=== PATIENT | female | born 1975 | race Caucasian/White ===

== ENCOUNTER 2019-04-25 10:15 | Emergency (ER) | payer BC, OTHER ==
[~2019-04-25] VITALS: Ht 160 cm; Wt 62.2 kg
[2019-04-25] MEDS ORDERED: NS IV 1000 ML 1,000 ML IV SCH (10:45)
[2019-04-25] MEDS ORDERED: diphenhydrAMINE 50 MG/ML INJ (BENADRYL) IVP ONE (10:45)
[2019-04-25] MEDS ORDERED: KETOROLAC 30 MG/ML VIAL IVP ONE (10:45)
[2019-04-25] MEDS ORDERED: METOCLOPRAMIDE INJ 10 MG/2 ML (REGLAN) IVP ONE (10:45)
--- NOTE | 2019-04-25 10:47 | ED Headache ---
General Stated Complaint: LOW BP Source: patient History of Present Illness Date Seen by Provider: Apr 25, 2019 Time Seen by Provider: 10:30 Initial Comments The patient is a pleasant 43-year-old female who presents for evaluation of headache over the last 3 days. She went to urgent care today and states that they took her blood pressure and told her that her blood pressure was too low and to go to the emergency department. Upon arrival her blood pressures excellent at 123/71. The patient states that she does sometimes get headaches or migraines. She reports being sensitive to sound and light. She denies any head injury, neck pain or neck stiffness, fevers or chills, vomiting, focal weakness or numbness, confusion, difficulty speaking, difficulty walking, dizziness or syncope. She is alert and oriented 4, calm, and appears to be in no distress this time. The headache began gradually and has been slowly getting worse. Timing/Duration: other (3 days) Severity/Quality: moderate Location: frontal Prior Headaches/Recent Trauma: frequent headaches Modifying Factors: improves with exposure to light (worsens) Associated Symptoms: denies symptoms Allergies and Home Medications Allergies Coded Allergies: codeine (Verified Allergy, Unknown, 04/25/19) morphine (Verified Allergy, Unknown, nausea/vomiting, 04/25/19) latex (Unverified Adverse Reaction, Intermediate, Hives, 04/25/19) cinnamon (Unverified Adverse Reaction, Mild, Rash, 04/25/19) Penicillins (Unverified Adverse Reaction, Unknown, 04/25/19) adhesive tape (Unverified Adverse Reaction, Unknown, 04/25/19) Uncoded Allergies: Plasticized Base (Adverse Reaction, Mild, Rash, 04/25/19) [facility] states Plasticized Base (Mineral Oil-pegs {bulk})/ patient was allergic to cinnamon Patient Home Medication List Home Medication List Reviewed: Yes Review of Systems Review of Systems Constitutional: no symptoms reported, weakness (fatigue) Eyes: No Symptoms Reported Ears, Nose, Mouth, Throat: no symptoms reported Respiratory: no symptoms reported Cardiovascular: no symptoms reported Gastrointestinal: no symptoms reported Genitourinary: no symptoms reported Musculoskeletal: no symptoms reported Skin: no symptoms reported Psychiatric/Neurological: Headache All Other Systems Reviewed Negative Unless Noted: Yes Past Lraubqz-[id number]-Uziuum Hx Past Med/Social Hx: Reviewed Nursing Past Med/Soc Hx Physical Exam Vital Signs Vital Signs - First Documented 04/25/19 10:25 Temp 36.8 Pulse 93 Resp 15 B/P (MAP) 124/85 (98) Pulse Ox 98 O2 Delivery Room Air Capillary Refill : Height, Weight, BMI Height: '" Weight: lbs. oz. kg; BMI Method: General Appearance: WD/WN, no apparent distress HEENT: PERRL/EOMI, normal ENT inspection, TMs normal, pharynx normal Cardiovascular: regular rate, rhythm, no edema Respiratory: chest non-tender, normal breath sounds, no respiratory distress, no accessory muscle use Gastrointestinal: normal bowel sounds, non tender, soft Extremities: normal range of motion, non-tender, normal inspection, no pedal edema Psychiatric: alert, oriented x 3 Crainal Nerves: normal hearing, normal speech, PERRL Motor/Sensory: no motor deficit, no sensory deficit Skin: normal color, warm/dry Progress/Results/Core Measures Results/Orders My Orders Orders - CORAZON PORTER DO Ct Head Wo (04/25/19 10:37) Ed Iv/Invasive Line Start (04/25/19 10:37) Ns Iv 1000 Ml (Sodium Chloride 0.9%) (04/25/19 10:45) Metoclopramide Injection (Reglan Injecti (04/25/19 10:45) Diphenhydramine Injection (Benadryl Inje (04/25/19 10:45) Ketorolac Injection (Toradol Injection) (04/25/19 10:45) Medications Given in ED Current Medications Medications Dose Ordered Sig/Hever Route Start Time Stop Time Status Last Admin Dose Admin Diphenhydramine HCl 25 mg ONCE ONCE IVP 04/25/19 10:45 04/25/19 10:46 DC 04/25/19 10:46 25 MG Ketorolac Tromethamine 30 mg ONCE ONCE IVP 04/25/19 10:45 04/25/19 10:46 DC 04/25/19 10:47 30 MG Metoclopramide HCl 10 mg ONCE ONCE IVP 04/25/19 10:45 04/25/19 10:46 DC 04/25/19 10:46 10 MG Vital Signs/I&O 04/25/19 10:25 Temp 36.8 Pulse 93 Resp 15 B/P (MAP) 124/85 (98) Pulse Ox 98 O2 Delivery Room Air Progress Progress Note : Progress Note @1142 - Patient updated on CT brain imaging which is unremarkable. The patient states she is feeling much better and is asking to go home. She tells me that she has headaches everyday of her life and that she is getting close to her baseline. Advised the patient to follow up with her PCP in the next 1-2 days and to return to the emergency Department immediately for new or worsening symptoms. Departure Impression Primary Impression: Headache Disposition: 01 HOME, SELF-CARE Condition: Stable Departure-Patient Inst. Decision time for Depature: 11:42 Referrals: NO,LOCAL PHYSICIAN (PCP) Primary Care Physician Patient Instructions: Migraine Headache (DC), Headache, Adult (DC) Add. Discharge Instructions: Follow-up with your doctor in the next 1-2 days. Return to the emergency Department immediately for new or worsening symptoms. Take ibuprofen or Tylenol for pain relief at home. Stay well hydrated by drinking plenty of water. Scripts Sumatriptan Succinate (Imitrex) 25 Mg Tablet 25 MG PO Q4H for Migraine, #20 TAB Prov: CORAZON PORTER DO 04/25/19 Ondansetron (Ondansetron Odt) 4 Mg Tab.rapdis 4 MG PO Q4H for 7 Days, #20 TAB Prov: CORAZON PORTER DO 04/25/19 CORAZON PORTER DO Apr 25, 2019 10:47
--- NOTE | 2019-04-25 11:36 | Diagnostic Imaging Report ---
PROCEDURE: CT head without contrast. TECHNIQUE: Multiple contiguous axial images were obtained through the brain without the use of intravenous contrast. Auto Exposure Controls were utilized during the CT exam to meet ALARA standards for radiation dose reduction. INDICATION: Dizziness and headache. COMPARISON: None available. FINDINGS: BRAIN: No parenchymal hemorrhage, midline shift or mass effect. Garrett-white matter differentiation is intact. No acute infarct. No white matter lesions. Ventricles, sulci and basilar cisterns are normal. EXTRA-AXIAL SPACES: No subdural or epidural collections. ORBITS AND PARANASAL SINUSES: Visualized orbits and globes are intact. Visualized paranasal sinuses and mastoid air cells are clear. CALVARIUM AND SOFT TISSUES: The calvarium is intact. No fractures or suspicious bony lesions. The extracranial soft tissues are unremarkable. IMPRESSION: No acute intracranial pathology. Dictated by: Dictated on workstation # [id number]
[2019-04-25] MEDS ORDERED: SUMA25TA3 PO (11:57)
[2019-04-25] MEDS ORDERED: ONDA4TAB11 PO (11:57)
[2019-04-25] MEDS ORDERED: fentaNYL INJECTION 100 MCG/2 ML AMP IVP ONE (12:00)
[2019-04-25 12:14] VITALS: BP 96/58
--- NOTE | 2019-04-25 12:14 | NUR ---
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 Pt verbalizes understanding of home instructions read and reviewed. 2 scripts transmitted to [facility]. Pt to establish with a PCP to do f/u and evaluate medications prescribed for headaches.
== END 2019-04-25 12:14 | disposition home or self-care (01) ==
LOC: MERGE 10:22 → ER FS 10:22
DX: R51 Headache (principal); Z88.5 Allergy status to narcotic agent; Z91.040 Latex allergy status; Z88.0 Allergy status to penicillin; Z88.8 Allergy status to other drugs, medicaments and biological substances
CPT/HCPCS: 70450